=== PATIENT | male | born 1960 | race Two or more races ===

== ENCOUNTER 2016-12-30 13:51 | Inpatient (IN) | payer OTHER ==
[~2016-12-30] VITALS: Ht 162.6 cm; Wt 58.5 kg
[~2016-12-30 13:51] MED LIST: NS 1000ml 1,600 ML IVLG ONE
[2016-12-30] MEDS ORDERED: Lidocaine HCl 2% Jelly 5ml Tube TOPIC ONE (14:00)
--- NOTE | 2016-12-30 14:19 | Diagnostic Imaging Report ---
Indication: Chest Pain Comparison: None A single view chest radiograph was obtained. Findings: Cardiomediastinal appearance is within normal limits for age. Pulmonary vascularity is appropriate. The diaphragmatic contour is smooth and costophrenic angles are sharp. No pleural effusions are identified. The bones are unremarkable. Impression: No acute findings
--- NOTE | 2016-12-30 14:20 | Emergency Room Report ---
History of Present Illness General Chief Complaint: Generalized Weakness Source: Patient, EMS Present Illness HPI Patient presents with hypotension. The private physician checked on patient's in the [id number] where this patient gets checked weekly. He checked the patient blood pressure supine was normal but when he stood up his blood pressure dropped to 77. The patient denies dizziness, fever, chest pain, shortness of breath, nausea, vomiting, diarrhea. He does complain about dysuria and lower abdominal pain and has an indwelling [place] catheter. He states that he's had problems with his prostate in the past. Though he denies pain to RN, he relates pain is moderate (?5/10) suprapubic and in penis, not radiating and constant. H/O seizures and diabetes. Uncertain why in psychiatric SNF. Allergies: Coded Allergies: No Known Allergies (Unverified , 12/30/16) Patient History Past Medical History: see triage record Social History: Reports: smoking Social History Narrative Psychiatric [id number] Reviewed Nursing Documentation: PMH: Agreed, PSxH: Agreed Nursing Documentation-PM Past Medical History: No History, Except For Hx Diabetes: Yes Hx Neurological Problems: Yes - Seizure Review of Systems All Other Systems: negative except mentioned in HPI Physical Exam Vital Signs Date Time Temp Pulse Resp B/P Pulse Ox O2 Delivery O2 Flow Rate FiO2 12/30/16 13:41 98.2 102 16 135/84 99 Room Air Sp02 EP Interpretation: reviewed, normal General Appearance: no apparent distress, alert, GCS 15, thin, Chronically Ill Head: normocephalic Eyes: bilateral eye PERRL, bilateral eye normal inspection ENT: dry mucus membranes - poor dentition Neck: supple Respiratory: lungs clear, normal breath sounds Cardiovascular #1: regular rate, rhythm Cardiovascular #2: 2+ radial (R) Gastrointestinal: normal inspection, normal bowel sounds, non tender, no mass, non-distended Genitourinary: other - mesa with clear looking urine (but looks like has been in for while) Musculoskeletal: back normal, gait/station normal, normal range of motion Neurologic: alert, DTRs symmetric, sensory intact, motor weakness - LE, oriented - X2 Psychiatric: mood/affect normal Skin: normal inspection, warm/dry Medical Decision Making Diagnostic Impression: Primary Impression: Sepsis due to urinary tract infection Additional Impression: Diabetes Qualified Codes: E11.8 - Type 2 diabetes mellitus with unspecified complications ER Course Patient presents with hypotension and dysuria with indwelling Mesa. Differential includes sepsis, UTI, acute myocardial infarction, going depletion , electrolyte imbalance amongst others. Reevaluated with a septic workup including blood cultures and lactate. In addition to that EKG and chest x-ray will be performed. Mesa catheter we changed. He received 3 mg per kilogram bolus of saline. In addition to that a box will be started. Labs significant for pyuria, leukocytosis, elevated lactate. CXR and EKG normal. Repeat lactate more elevated. Increase hydration. Antibiotics started. Improved. Admitted telemetry, Dr. Gaona. Laboratory Tests Test 12/30/16 13:45 12/30/16 14:50 White Blood Count 9.2 K/UL (4.8-10.8) Red Blood Count 3.83 M/UL (4.70-6.10) L Hemoglobin 11.5 G/DL (14.2-18.0) L Hematocrit 33.2 % (42.0-52.0) L Mean Corpuscular Volume 87 FL (80-99) Mean Corpuscular Hemoglobin 30.0 PG (27.0-31.0) Mean Corpuscular Hemoglobin Concent 34.6 G/DL (32.0-36.0) Red Cell Distribution Width 12.9 % (11.6-14.8) Platelet Count 303 K/UL (150-450) Mean Platelet Volume 7.3 FL (6.5-10.1) Neutrophils (%) (Auto) 59.3 % (45.0-75.0) Lymphocytes (%) (Auto) 31.9 % (20.0-45.0) Monocytes (%) (Auto) 5.8 % (1.0-10.0) Eosinophils (%) (Auto) 2.3 % (0.0-3.0) Basophils (%) (Auto) 0.8 % (0.0-2.0) Prothrombin Time 10.3 SEC (9.30-11.50) Prothrombin Time INR 1.0 (0.9-1.1) PTT 25 SEC (23-33) Urine Color Yellow Urine Appearance Turbid Urine pH 6 (4.5-8.0) Urine Specific [place] 1.020 (1.005-1.035) Urine Protein 3+ (NEGATIVE) H Urine Glucose (UA) 3+ (NEGATIVE) H Urine Ketones Negative (NEGATIVE) Urine Occult Blood 2+ (NEGATIVE) H Urine Nitrite Positive (NEGATIVE) H Urine Bilirubin Negative (NEGATIVE) Urine Urobilinogen Normal MG/DL (0.0-1.0) Urine Leukocyte Esterase 3+ (NEGATIVE) H Urine RBC 5-10 /HPF (0 - 0) H Urine WBC 40-60 /HPF (0 - 0) H Urine Squamous Epithelial Cells Few /LPF (NONE/OCC) Urine Bacteria Many /HPF (NONE) H Sodium Level 141 mEQ/L (135-145) Potassium Level 4.2 mEQ/L (3.4-4.9) Chloride Level 101 mEQ/L (98-107) Carbon Dioxide Level 24 mEQ/L (20-30) Anion Gap 16 (5-15) H Blood Urea Nitrogen 12 mg/dL (7-23) Creatinine 0.7 mg/dL (0.7-1.2) Estimate Glomerular Filtration Rate > 60 mL/min (>60) Glucose Level 175 mg/dL (74-106) H Lactic Acid Level 2.50 mmol/L (0.66-2.22) H 2.90 mmol/L (0.66-2.22) H Calcium Level 9.0 mg/dL (8.6-10.2) Magnesium Level 1.7 mg/dL (1.7-2.5) Total Bilirubin < 0.2 mg/dL (0.0-1.2) Aspartate Amino Transferase (AST) 8 U/L (5-40) Alanine Aminotransferase (ALT) 13 U/L (3-41) Alkaline Phosphatase 54 U/L (40-129) Total Creatine Kinase 81 U/L (38-174) Troponin I < 0.30 ng/mL (<=0.30) Pro-B-Type Natriuretic Peptide 96 pg/mL (0-125) Total Protein 6.5 g/dL (6.6-8.7) L Albumin 3.7 g/dL (3.5-5.2) Globulin 2.8 g/dL Albumin/Globulin Ratio 1.3 (1.0-2.7) EKG Diagnostic Results Rate: normal Rhythm: NSR ST Segments: no acute changes Rhythm Strip Diag. Results EP Interpretation: yes Rhythm: NSR, no PVC's, no ectopy Chest X-Ray Diagnostic Results EP Interpretation: Yes Findings: no consolidation, no effusion, no pneumothorax, no acute cardiopulmonary disease Number of Views: 1 Last Vital Signs Date Time Temp Pulse Resp B/P Pulse Ox O2 Delivery O2 Flow Rate FiO2 12/31/16 00:38 98.6 88 20 148/89 98 Room Air Status: improved Disposition: ADMITTED INPATIENT Condition: Serious Jace Alcantar M.D. December 30, 2016 14:20
[2016-12-30] MEDS ORDERED: Cefepime HCl 1 GM in NS 55 ML IV STA (14:21)
[2016-12-30] MEDS ORDERED: Vancomycin 1 GM in NS 275 ML IV ONE (14:30)
[2016-12-30 14:32] LABS: ALANINE AMINOTRANSFERASE 13 U/L (3-41); ALBUMIN/GLOBULIN RATIO 1.3 (1.0-2.7); ANION GAP 16 (5-15); APPEARANCE,URINE TURBID; ASPARTATE AMINO TRANSFERASE 8 U/L (5-40); CARBON DIOXIDE 24 mEQ/L (20-30); CHLORIDE 101 mEQ/L (98-107); CREATININE 0.7 mg/dL (0.7-1.2); GLOMERULAR FILTRATION RATE > 60 mL/min (>60); HEMOLYSIS 5; KETONES,URINE NEGATIVE (NEGATIVE); LEUKOCYTE ESTERASE ,URINE 3+ (NEGATIVE); MAGNESIUM 1.7 mg/dL (1.7-2.5); NITRITE,URINE POSITIVE (NEGATIVE); PH,URINE 6 (4.5-8.0); POTASSIUM 4.2 mEQ/L (3.4-4.9); PROTEIN,URINE 3+ (NEGATIVE); SODIUM 141 mEQ/L (135-145); TOTAL PROTEIN 6.5 g/dL (6.6-8.7); TROPONIN I < 0.30 ng/mL (<=0.30); UROBILINOGEN,URINE NORMAL MG/DL (0.0-1.0)
[2016-12-30 14:33] LABS: PROTHROMBIN TIME 10.3 SEC (9.30-11.50)
[2016-12-30 14:35] LABS: REFLEX LACTIC ACID YES OR NO YES
[2016-12-30] MEDS ORDERED: Vancomycin 1gm inj IVPB ONE (14:41)
[2016-12-30] MEDS ORDERED: Cefepime 1gm vial ONE (14:41)
[2016-12-30 15:01] LABS: BASOPHILS % (AUTO) 0.8 % (0.0-2.0); EOSINOPHILS % (AUTO) 2.3 % (0.0-3.0); LYMPHOCYTES % (AUTO) 31.9 % (20.0-45.0); MEAN CORPUSCULAR HGB CONC 34.6 G/DL (32.0-36.0); MEAN CORPUSCULAR VOLUME 87 FL (80-99); MEAN PLATELET VOLUME 7.3 FL (6.5-10.1); MONOCYTES % (AUTO) 5.8 % (1.0-10.0); NEUTROPHILS % (AUTO) 59.3 % (45.0-75.0); PLATELET COUNT 303 K/UL (150-450); RED BLOOD COUNT 3.83 M/UL (4.70-6.10); RED CELL DISTRIBUTION WIDTH 12.9 % (11.6-14.8); WHITE BLOOD COUNT 9.2 K/UL (4.8-10.8)
[2016-12-30 15:15] LABS: BACTERIA,URINE MANY /HPF; SQUAMOUS EPITHELIAL CELL,UR FEW /LPF (NONE/OCC); WBC,URINE 40-60 /HPF (0 - 0)
[2016-12-30] MEDS ORDERED: MEGESTROL ACETA40 MG PO (15:28)
[2016-12-30] MEDS ORDERED: MIDODRINE HCL5 MG ORAL (15:36)
[2016-12-30] MEDS ORDERED: METFORMIN HCL1000 M1 ORAL (15:36)
[2016-12-30] MEDS ORDERED: FOLIC ACID1 MG ORAL (15:36)
[2016-12-30] MEDS ORDERED: TAMSULOSIN HCL0.4 MG ORAL (15:36)
[2016-12-30] MEDS ORDERED: LEVETIRACETAM500 MG ORAL (15:36)
[2016-12-30] MEDS ORDERED: GLIMEPIRIDE1 MG ORAL (15:36)
[2016-12-30] MEDS ORDERED: ACETAMINOP160 MG/54 ORAL (15:36)
[2016-12-30] MEDS ORDERED: PROSCAR5 MG ORAL (15:36)
[2016-12-30 16:03] VITALS: BP 118/42
[2016-12-30 17:29] VITALS: BP 110/50
[2016-12-30] MEDS ORDERED: Morphine Sulfate 2mg/ml Inj IVP PRN (18:00)
[2016-12-30] MEDS ORDERED: DuoNeb 0.5-3(2.5)mg/3ml neb HHN PRN (18:00)
[2016-12-30] MEDS ORDERED: Miralax 17gm pkt ORAL PRN (18:00)
[2016-12-30] MEDS ORDERED: Nitroglycerin Subl 0.4mg tab (Bottle Of 25) SL PRN (18:15)
[2016-12-30 18:28] VITALS: BP 136/78
[2016-12-30 20:11] VITALS: BP 152/85
[2016-12-30] MEDS: Heparin 5000 units/ml inj SUBQ SCH (20:42)
[2016-12-30] MEDS: NovoLOG Insulin Flexpen SUBQ SCH (20:43)
[2016-12-30] MEDS: Cefepime HCl 2 GM in D5W 110 ML IV SCH (20:44)
[2016-12-30] MEDS ORDERED: Tamsulosin 0.4mg cap ORAL SCH (21:00)
[2016-12-30] MEDS: Vancomycin 1 GM in D5W 275 ML IVPB SCH (23:11)
--- NOTE | 2016-12-30 23:41 | Consultation ---
Consult Note Consult Note # [id number] RUDDY COFFEY M.D. December 30, 2016 23:41
[2016-12-31 00:38] VITALS: BP 148/89
[2016-12-31 04:25] VITALS: BP 116/69
[2016-12-31] MEDS: NovoLOG Insulin Flexpen SUBQ SCH ×4 (06:52→20:44)
[2016-12-31 07:41] VITALS: BP 104/67
[2016-12-31 08:12] LABS: EOSINOPHILS % (AUTO) 2.1 % (0.0-3.0); LYMPHOCYTES % (AUTO) 43.9 % (20.0-45.0); MEAN CORPUSCULAR HEMOGLOBIN 29.5 PG (27.0-31.0); MEAN CORPUSCULAR HGB CONC 33.9 G/DL (32.0-36.0); MEAN CORPUSCULAR VOLUME 87 FL (80-99); MEAN PLATELET VOLUME 6.6 FL (6.5-10.1); MONOCYTES % (AUTO) 5.3 % (1.0-10.0); NEUTROPHILS % (AUTO) 47.8 % (45.0-75.0); PLATELET COUNT 279 K/UL (150-450); RED BLOOD COUNT 3.68 M/UL (4.70-6.10); RED CELL DISTRIBUTION WIDTH 12.7 % (11.6-14.8); WHITE BLOOD COUNT 7.2 K/UL (4.8-10.8)
--- NOTE | 2016-12-31 08:16 | Consultation ---
DATE OF CONSULTATION: INFECTIOUS DISEASE CONSULTATION CONSULTING PHYSICIAN: Olman Blackburn M.D. REQUESTING PHYSICIAN: Heaven Gaona M.D. REASON FOR CONSULTATION: Evaluation of the patient for possible sepsis. HISTORY OF PRESENT ILLNESS: The patient is a 56-year-old male with multiple medical problems as listed below, who was admitted to this medical center due to uncontrolled hypertension. However, apparently, the patient developed significant orthostatic hypotension and the blood pressures dropped. The patient has been admitted to this medical center with possible sepsis. Infectious Disease consultation has been requested for further evaluation of the patient and antibiotic management. PAST MEDICAL HISTORY: Significant for diabetes and psychiatric disorder. MEDICATIONS: Vancomycin and cefepime. ALLERGIES: No known drug allergies. SOCIAL HISTORY: Resides at [facility]. REVIEW OF SYSTEMS: HEENT: No recent change in vision or hearing. Pulmonary: No cough or shortness of breath. Cardiovascular: As mentioned above. Gastrointestinal/Abdomen: No nausea or vomiting. Genitourinary: No dysuria. PHYSICAL EXAMINATION: VITAL SIGNS: Temperature 97.5 degrees, blood pressure 152/85, pulse 86, and respiratory rate 18. HEENT: Mild pale conjunctivae. No icterus. NECK: No lymphadenopathy. CHEST: Coarse breathing sounds. HEART: S1 and S2. ABDOMEN: Soft and nontender. EXTREMITIES: No cyanosis. NEUROLOGIC: Awake. LABORATORY DATA: WBC 9.2, hemoglobin 11.5, and platelets 303,000. UA, 40 to 60 white blood cells. BUN 12 and creatinine 0.6. Liver function tests, unremarkable. Chest x-ray, no acute findings. ASSESSMENT: The patient is a 56-year-old male with multiple medical problems, who has been admitted to this medical center initially with hypertension, but then later the patient developed hypotension. The patient's urinalysis showed pyuria. There is no fever and no leukocytosis. Possible urinary tract infection, sepsis, and bacteremia due to , however in view of absence of significant symptoms, this is less likely. PLAN: 1. We will continue the patient on IV vancomycin and cefepime. 2. Monitor CBC. 3. Monitor BMP. 4. Monitor cultures (blood and urine). 5. Monitor chest x-ray. 6. Based on the patient's clinical course and laboratories, we will do further recommendations. Thank you, Dr. Gaona, for allowing me to participate in the care of this patient. I will follow the patient with you during this hospitalization. Olman Blackburn M.D. DR: ROSARIO JOB#: [id number] CC:
[2016-12-31 08:18] LABS: ALANINE AMINOTRANSFERASE 11 U/L (3-41); ALBUMIN/GLOBULIN RATIO 1.3 (1.0-2.7); ANION GAP 14 (5-15); ASPARTATE AMINO TRANSFERASE 7 U/L (5-40); CALCIUM 8.6 mg/dL (8.6-10.2); CARBON DIOXIDE 24 mEQ/L (20-30); CHLORIDE 103 mEQ/L (98-107); CREATININE 0.5 mg/dL (0.7-1.2); GLOMERULAR FILTRATION RATE > 60 mL/min (>60); HEMOLYSIS 1; POTASSIUM 3.6 mEQ/L (3.4-4.9); SODIUM 141 mEQ/L (135-145); TOTAL PROTEIN 5.7 g/dL (6.6-8.7)
[2016-12-31] MEDS: Cefepime HCl 2 GM in D5W 110 ML IV SCH (08:42)
[2016-12-31] MEDS: Heparin 5000 units/ml inj SUBQ SCH ×2 (08:44→20:54)
[2016-12-31 11:17] VITALS: BP 116/65
[2016-12-31] MEDS: Vancomycin 1 GM in D5W 275 ML IVPB SCH (11:36)
--- NOTE | 2016-12-31 13:34 | History and Physical ---
History of Present Illness General Date patient seen: December 31, 2016 Reason for Hospitalization: Generalized Weakness Present Illness HPI 56 year old male with hx of psychiatric disorder, chronic mesa, brought in by paramedics because his blood pressure dropped to 77 upon standing The patient denies dizziness, fever, chest pain, shortness of breath, nausea, vomiting, diarrhea. He does complain about dysuria and lower abdominal pain and has an indwelling [place] catheter. He states that he's had problems with his prostate in the past. He is admitted to telemetry for possible sepsis. Allergies: Coded Allergies: No Known Allergies (Unverified , 12/31/16) Medication History Scheduled Finasteride* (Proscar*), 5 MG ORAL DAILY, (Reported) Folic Acid* (Folic Acid*), 1 MG ORAL DAILY, (Reported) Glimepiride* (Glimepiride*), 1 MG ORAL BEFORE BREAKFAST, (Reported) Levetiracetam* (Levetiracetam*), 750 MG ORAL TWICE A DAY, (Reported) Metformin Hcl* (Metformin Hcl*), 1,000 MG ORAL BIDAC, (Reported) Midodrine* (Proamatine*), 5 MG ORAL THREE TIMES A DAY, (Reported) Tamsulosin Hcl (Tamsulosin Hcl*), 0.4 MG ORAL BEDTIME, (Reported) Scheduled PRN Acetaminophen* (Acetaminophen*), 325 MG ORAL Q6H PRN for Mild Pain/Temp > 100.5, (Reported) Miscellaneous Medications Megestrol Acetate (Megestrol Acetate), 40 MG PO, (Reported) Patient History Healthcare decision maker NONE Resuscitation status Full Code Advanced Directive on File Past Medical/Surgical History Past Medical/Surgical History: (1) Psychiatric illness (2) Diabetes Review of Systems All Other Systems: negative except mentioned in HPI Physical Exam General Appearance: WD/WN, no apparent distress Lines, tubes and drains: peripheral HEENT: normocephalic, atraumatic Neck: non-tender, normal alignment Respiratory/Chest: chest wall non-tender, lungs clear Breasts: no masses Cardiovascular/Chest: normal peripheral pulses, normal rate Abdomen: normal bowel sounds, non tender Genitourinary/Rectal: normal genital exam Extremities: normal range of motion Neurologic: supervisor nurse II-XII grossly normal Last 24 Hour Vital Signs Date Time Temp Pulse Resp B/P Pulse Ox O2 Delivery O2 Flow Rate FiO2 12/31/16 11:17 97.9 88 20 116/65 98 Room Air 12/31/16 08:02 77 18 Room Air 12/31/16 08:00 112 12/31/16 07:41 98.1 84 20 104/67 98 Room Air 12/31/16 04:25 97.5 84 20 116/69 98 Room Air 12/31/16 04:00 81 12/31/16 00:38 98.6 88 20 148/89 98 Room Air 12/31/16 00:00 103 12/30/16 20:11 97.5 89 20 152/85 97 Room Air 12/30/16 20:00 91 12/30/16 18:28 98.1 94 20 136/78 Room Air 12/30/16 18:03 78 16 120/80 98 Room Air 12/30/16 17:29 98.6 98 16 110/50 99 Room Air 12/30/16 16:03 103 16 118/42 98 Room Air 12/30/16 13:41 98.2 102 16 135/84 99 Room Air Intake and Output 12/30/16 12/31/16 19:00 07:00 Intake Total 385.0 ml Output Total 3100 ml Balance -2715.0 ml IV Total 385.0 ml Output Urine Total 3100 ml # Voids 1 Laboratory Tests Test 12/30/16 13:45 12/30/16 14:50 12/31/16 07:00 White Blood Count 9.2 K/UL (4.8-10.8) 7.2 K/UL (4.8-10.8) Red Blood Count 3.83 M/UL (4.70-6.10) L 3.68 M/UL (4.70-6.10) L Hemoglobin 11.5 G/DL (14.2-18.0) L 10.9 G/DL (14.2-18.0) L Hematocrit 33.2 % (42.0-52.0) L 32.1 % (42.0-52.0) L Mean Corpuscular Volume 87 FL (80-99) 87 FL (80-99) Mean Corpuscular Hemoglobin 30.0 PG (27.0-31.0) 29.5 PG (27.0-31.0) Mean Corpuscular Hemoglobin Concent 34.6 G/DL (32.0-36.0) 33.9 G/DL (32.0-36.0) Red Cell Distribution Width 12.9 % (11.6-14.8) 12.7 % (11.6-14.8) Platelet Count 303 K/UL (150-450) 279 K/UL (150-450) Mean Platelet Volume 7.3 FL (6.5-10.1) 6.6 FL (6.5-10.1) Neutrophils (%) (Auto) 59.3 % (45.0-75.0) 47.8 % (45.0-75.0) Lymphocytes (%) (Auto) 31.9 % (20.0-45.0) 43.9 % (20.0-45.0) Monocytes (%) (Auto) 5.8 % (1.0-10.0) 5.3 % (1.0-10.0) Eosinophils (%) (Auto) 2.3 % (0.0-3.0) 2.1 % (0.0-3.0) Basophils (%) (Auto) 0.8 % (0.0-2.0) 1.0 % (0.0-2.0) Prothrombin Time 10.3 SEC (9.30-11.50) Prothromb Time International Ratio 1.0 (0.9-1.1) Activated Partial Thromboplast Time 25 SEC (23-33) Urine Color Yellow Urine Appearance Turbid Urine pH 6 (4.5-8.0) Urine Specific [place] 1.020 (1.005-1.035) Urine Protein 3+ (NEGATIVE) H Urine Glucose (UA) 3+ (NEGATIVE) H Urine Ketones Negative (NEGATIVE) Urine Occult Blood 2+ (NEGATIVE) H Urine Nitrite Positive (NEGATIVE) H Urine Bilirubin Negative (NEGATIVE) Urine Urobilinogen Normal MG/DL (0.0-1.0) Urine Leukocyte Esterase 3+ (NEGATIVE) H Urine RBC 5-10 /HPF (0 - 0) H Urine WBC 40-60 /HPF (0 - 0) H Urine Squamous Epithelial Cells Few /LPF (NONE/OCC) Urine Bacteria Many /HPF (NONE) H Sodium Level 141 mEQ/L (135-145) 141 mEQ/L (135-145) Potassium Level 4.2 mEQ/L (3.4-4.9) 3.6 mEQ/L (3.4-4.9) Chloride Level 101 mEQ/L (98-107) 103 mEQ/L (98-107) Carbon Dioxide Level 24 mEQ/L (20-30) 24 mEQ/L (20-30) Anion Gap 16 (5-15) H 14 (5-15) Blood Urea Nitrogen 12 mg/dL (7-23) 9 mg/dL (7-23) Creatinine 0.7 mg/dL (0.7-1.2) 0.5 mg/dL (0.7-1.2) L Estimat Glomerular Filtration Rate > 60 mL/min (>60) > 60 mL/min (>60) Glucose Level 175 mg/dL (74-106) H 136 mg/dL (74-106) H Lactic Acid Level 2.50 mmol/L (0.66-2.22) H 2.90 mmol/L (0.66-2.22) H Calcium Level 9.0 mg/dL (8.6-10.2) 8.6 mg/dL (8.6-10.2) Magnesium Level 1.7 mg/dL (1.7-2.5) Total Bilirubin < 0.2 mg/dL (0.0-1.2) < 0.2 mg/dL (0.0-1.2) Aspartate Amino Transf (AST/SGOT) 8 U/L (5-40) 7 U/L (5-40) Alanine Aminotransferase (ALT/SGPT) 13 U/L (3-41) 11 U/L (3-41) Alkaline Phosphatase 54 U/L (40-129) 47 U/L (40-129) Total Creatine Kinase 81 U/L (38-174) Troponin I < 0.30 ng/mL (<=0.30) Pro-B-Type Natriuretic Peptide 96 pg/mL (0-125) Total Protein 6.5 g/dL (6.6-8.7) L 5.7 g/dL (6.6-8.7) L Albumin 3.7 g/dL (3.5-5.2) 3.3 g/dL (3.5-5.2) L Globulin 2.8 g/dL 2.4 g/dL Albumin/Globulin Ratio 1.3 (1.0-2.7) 1.3 (1.0-2.7) Microbiology Date/Time Source Procedure Growth Status 12/30/16 13:45 Urine,Clean Catch Urine Culture - Preliminary Gram Negative Bacillus 1 Resulted Height (Feet): 5 Height (Inches): 4.00 Weight (Pounds): 129 Medications Current Medications Medications (Trade) Dose Ordered Sig/Royal Route PRN Reason Start Time Stop Time Status Last Admin Dose Admin Acetaminophen (Tylenol) 650 mg Q4H PRN ORAL T>100.5 12/30/16 18:00 01/29/17 17:59 Albuterol/ Ipratropium 3 ml 3 ml Q4H PRN HHN Shortness of Breath 12/30/16 18:00 01/04/17 17:59 Cefepime HCl 2 gm/ Dextrose 110 ml @ 220 mls/hr EVERY 12 HOURS IV 12/30/16 21:00 01/06/17 20:59 12/31/16 08:42 Dextrose (Dextrose 50%) STAT PRN IV Hypoglycemia 12/30/16 18:00 01/29/17 17:59 Finasteride (Proscar) 5 mg DAILY ORAL 12/31/16 09:00 01/30/17 08:59 12/31/16 08:42 Heparin Sodium (Porcine) (Heparin 5000 units/ml) 5,000 units EVERY 12 HOURS SUBQ 12/30/16 21:00 01/29/17 20:59 12/31/16 08:44 Insulin Aspart (NovoLOG) BEFORE MEALS AND HS SUBQ 12/30/16 21:00 01/29/17 20:59 12/31/16 11:37 Levetiracetam (Keppra) 750 mg Q12HR ORAL 12/30/16 21:00 01/29/17 20:59 12/31/16 08:42 Midodrine (Pro-Amatine) 5 mg THREE TIMES A DAY ORAL 12/30/16 20:00 01/29/17 19:59 12/31/16 13:16 Morphine Sulfate (Morphine Sulfate) 2 mg Q4H PRN IVP PAIN 4-10 12/30/16 18:00 01/06/17 17:59 12/31/16 02:29 Nitroglycerin (Ntg) 0.4 mg Q5MIN X 3 DOSES PRN SL Prn Chest Pain 12/30/16 18:15 01/29/17 18:14 Ondansetron HCl (Zofran) 4 mg Q6H PRN IVP Nausea & Vomiting 12/30/16 18:00 01/29/17 17:59 Polyethylene Glycol (Miralax) 17 gm DAILYPRN PRN ORAL Constipation 12/30/16 18:00 01/29/17 17:59 Tamsulosin HCl (Flomax) 0.4 mg BEDTIME ORAL 12/30/16 21:00 01/29/17 20:59 12/30/16 20:30 Temazepam (Restoril) 15 mg HSPRN PRN ORAL Insomnia 12/30/16 21:00 01/06/17 20:59 Vancomycin HCl (Vanco rx to dose) 1 ea DAILY PRN MISC . 12/30/16 18:15 01/29/17 18:14 Vancomycin HCl/ Dextrose (Vancomycin/D5W) 275 ml @ 183.3 mls/ hr Q12HR@1100,2300 IVPB 12/30/16 23:00 01/04/17 22:59 12/31/16 11:36 Assessment/Plan Problem List: (1) Sepsis due to urinary tract infection ICD Codes: A41.9 - Sepsis, unspecified organism; N39.0 - Urinary tract infection, site not specified SNOMED: 657038889 (2) Psychiatric illness ICD Codes: F99 - Mental disorder, not otherwise specified SNOMED: 80843488, [id number] (3) Diabetes ICD Codes: E11.9 - Type 2 diabetes mellitus without complications SNOMED: 07452806 Qualifiers: Qualified Codes: E11.8 - Type 2 diabetes mellitus with unspecified complications Assessment/Plan IV fluids check cultures ID evaluation psych evaluation STEPHENIE ROONEY December 31, 2016 13:34
[2016-12-31] MEDS ORDERED: DuoNeb 0.5-3(2.5)mg/3ml neb HHN PRN (16:00)
[2016-12-31] MEDS ORDERED: Nitroglycerin Subl 0.4mg tab (Bottle Of 25) SL PRN (16:00)
[2016-12-31] MEDS ORDERED: Miralax 17gm pkt ORAL PRN (16:00)
[2016-12-31] MEDS ORDERED: Morphine Sulfate 2mg/ml Inj IVP PRN (16:00)
[2016-12-31 16:06] VITALS: BP 134/76
[2016-12-31 20:00] VITALS: BP 132/64
[2016-12-31] MEDS: Tamsulosin 0.4mg cap ORAL SCH (20:52)
[2016-12-31] MEDS ORDERED: Cefepime HCl 2 GM in D5W 110 ML IV SCH (21:00)
--- NOTE | 2016-12-31 23:31 | Consultation ---
DATE OF CONSULTATION: HISTORY OF PRESENT ILLNESS: This is a 56-year-old male with a history of hypotension and schizophrenia, who has been admitted due to generalized weakness. The patient also has a history of seizure disorder and diabetes. He was admitted due to sepsis. During the evaluation, the patient is alert and oriented times self and place, however, unable to provide history, somewhat disorganized, and not engaged during the evaluation. He is still complaining of weakness. PAST PSYCHIATRIC HISTORY: Diagnosed with schizophrenia, who has been treated with antipsychotics in the past. He also has been treated with anxiolytics. PAST MEDICAL HISTORY: Significant for diabetes and seizure disorder. ALLERGIES: No known drug allergies. SUBSTANCE ABUSE HISTORY: He is a smoker. No illicit drug use or alcohol. MENTAL STATUS EXAMINATION: The patient is alert and oriented x2. Mood is neutral. Affect is constricted. Congruent mood. Thought process is concrete. Thought content, there is no suicidal or homicidal ideation. Cognition is impaired. ASSESSMENT: [place] I Schizophrenia. [place] II Deferred. [place] III Sepsis. [place] IV Slow. [place] V Global assessment of functioning is 20. PLAN: 1. The patient will be started on risperidone 2 mg p.o. at bedtime. 2. Provide the patient with supportive therapy and reality orientation. Wyatt Loja M.D. DR: MICHELLE JOB#: [id number] CC:
[2017-01-01] VITALS: BP 112/68
[2017-01-01 04:00] VITALS: BP 114/59
[2017-01-01] MEDS: NovoLOG Insulin Flexpen SUBQ SCH ×4 (06:30→20:57)
[2017-01-01 07:14] LABS: MEAN CORPUSCULAR HEMOGLOBIN 29.2 PG (27.0-31.0); MEAN CORPUSCULAR VOLUME 88 FL (80-99); MEAN PLATELET VOLUME 6.9 FL (6.5-10.1); PLATELET COUNT 301 K/UL (150-450); RED BLOOD COUNT 3.78 M/UL (4.70-6.10); RED CELL DISTRIBUTION WIDTH 13.2 % (11.6-14.8); WHITE BLOOD COUNT 6.5 K/UL (4.8-10.8)
[2017-01-01 07:34] LABS: PROTHROMBIN TIME 10.2 SEC (9.30-11.50)
[2017-01-01 08:15] VITALS: BP 120/68
--- NOTE | 2017-01-01 08:33 | Infectious Diseases Prog Note ---
Assessment/Plan Assessment/Plan A: The patient is a 56-year-old male with ESBL+ E.coli UTI Sepsis probable Lactic acidosis SP SP orthostatic hypotension Afebrile without leukocytosis HTN Diabetes hx of psychiatric disorder MRSA colonized NKDA Full Code PLAN: change cefepime d# 3 to invanz d# / based on cultures. Ok to complete course with PO macrobid if BCx remain negative ( 12/31 SP vancomycin d# 2 ) Monitor CBC Monitor BMP Monitor cultures (blood and urine) Monitor chest x-ray Subjective Allergies: Coded Allergies: No Known Allergies (Unverified , 12/31/16) Subjective remains afebrile comfortable Objective Vital Signs Last 24 Hour Vital Signs Date Time Temp Pulse Resp B/P Pulse Ox O2 Delivery O2 Flow Rate FiO2 01/01/17 04:00 98.2 76 20 114/59 98 Room Air 01/01/17 00:00 97.2 91 22 112/68 96 Room Air 12/31/16 20:00 97.9 72 18 132/64 97 Room Air 12/31/16 19:35 72 18 Room Air 12/31/16 18:25 97.7 12/31/16 16:06 97.7 79 20 134/76 99 Room Air 12/31/16 12:00 92 12/31/16 11:17 97.9 88 20 116/65 98 Room Air Height (Feet): 5 Height (Inches): 4.00 Weight (Pounds): 129 General Appearance: no acute distress Respiratory/Chest: no respiratory distress Cardiovascular: normal rate, regular rhythm Abdomen: normal bowel sounds, soft, non tender, non distended Microbiology Date/Time Source Procedure Growth Status 12/30/16 14:00 Blood Blood Culture - Preliminary NO GROWTH AFTER 24 HOURS Resulted 12/30/16 13:45 Blood Blood Culture - Preliminary NO GROWTH AFTER 24 HOURS Resulted 12/30/16 17:50 Nasal Nares MRSA Culture - Final Staphylococcus Aureus - Mrsa Complete 12/30/16 13:45 Urine,Clean Catch Urine Culture - Final Escherichia Coli - Esbl Complete 12/30/16 17:50 Rectum VRE Culture - Final NO VANCOMYCIN RESISTANT ENTEROCOCCUS ... Complete Laboratory Tests Test 01/01/17 04:30 White Blood Count 6.5 K/UL (4.8-10.8) Red Blood Count 3.78 M/UL (4.70-6.10) L Hemoglobin 11.0 G/DL (14.2-18.0) L Hematocrit 33.4 % (42.0-52.0) L Mean Corpuscular Volume 88 FL (80-99) Mean Corpuscular Hemoglobin 29.2 PG (27.0-31.0) Mean Corpuscular Hemoglobin Concent 33.0 G/DL (32.0-36.0) Red Cell Distribution Width 13.2 % (11.6-14.8) Platelet Count 301 K/UL (150-450) Mean Platelet Volume 6.9 FL (6.5-10.1) Neutrophils (%) (Auto) 49.1 % (45.0-75.0) Lymphocytes (%) (Auto) 42.6 % (20.0-45.0) Monocytes (%) (Auto) 5.4 % (1.0-10.0) Eosinophils (%) (Auto) 1.8 % (0.0-3.0) Basophils (%) (Auto) 1.1 % (0.0-2.0) Erythrocyte Sedimentation Rate Pending Reticulocyte Count Pending Prothrombin Time 10.2 SEC (9.30-11.50) Prothromb Time International Ratio 1.0 (0.9-1.1) Activated Partial Thromboplast Time 25 SEC (23-33) Lactic Acid Level 0.90 mmol/L (0.66-2.22) Iron Level Pending Unsaturated Iron Binding Pending Lactate Dehydrogenase 160 U/L (135-230) Carcinoembryonic Antigen 2.0 ng/mL Vitamin B12 Level 448 pg/mL (211-946) Folate Pending Current Medications Medications (Trade) Dose Ordered Sig/Royal Route PRN Reason Start Time Stop Time Status Last Admin Dose Admin Acetaminophen (Tylenol) 650 mg Q4H PRN ORAL T>100.5 12/31/16 16:00 01/30/17 15:59 12/31/16 17:26 Albuterol/ Ipratropium (DuoNeb 0.5-3(2.5)mg/3ml) 3 ml Q4H PRN HHN Shortness of Breath 12/31/16 16:00 01/05/17 15:59 Cefepime HCl/ Dextrose (Maxipime/D5W) 110 ml @ 220 mls/hr EVERY 12 HOURS IV 12/31/16 21:00 01/07/17 20:59 12/31/16 20:34 Dextrose (Dextrose 50%) STAT PRN IV Hypoglycemia 12/31/16 16:00 01/30/17 15:59 Finasteride (Proscar) 5 mg DAILY ORAL 01/01/17 09:00 01/31/17 08:59 Heparin Sodium (Porcine) (Heparin 5000 units/ml) 5,000 units EVERY 12 HOURS SUBQ 12/31/16 21:00 01/30/17 20:59 12/31/16 20:54 Insulin Aspart (NovoLOG) BEFORE MEALS AND HS SUBQ 12/31/16 16:30 01/30/17 16:29 12/31/16 17:07 Levetiracetam (Keppra) 750 mg Q12HR ORAL 12/31/16 21:00 01/30/17 20:59 12/31/16 20:53 Midodrine (Pro-Amatine) 5 mg THREE TIMES A DAY ORAL 12/31/16 18:00 01/30/17 17:59 12/31/16 17:20 Morphine Sulfate (Morphine Sulfate) 2 mg Q4H PRN IVP PAIN 4-10 12/31/16 16:00 01/07/17 15:59 Nitroglycerin (Ntg) 0.4 mg Q5MIN X 3 DOSES PRN SL Prn Chest Pain 12/31/16 16:00 01/30/17 15:59 Ondansetron HCl (Zofran) 4 mg Q6H PRN IVP Nausea & Vomiting 12/31/16 16:00 01/30/17 15:59 Polyethylene Glycol (Miralax) 17 gm DAILYPRN PRN ORAL Constipation 12/31/16 16:00 01/30/17 15:59 Risperidone (RisperDAL) 2 mg BEDTIME ORAL 12/31/16 21:00 01/30/17 20:59 12/31/16 20:52 Tamsulosin HCl (Flomax) 0.4 mg BEDTIME ORAL 12/31/16 21:00 01/30/17 20:59 12/31/16 20:52 Temazepam (Restoril) 15 mg HSPRN PRN ORAL Insomnia 12/31/16 21:00 01/07/17 20:59 LETICIA RAMOS January 01, 2017 08:33
[2017-01-01] MEDS: Heparin 5000 units/ml inj SUBQ SCH ×2 (09:19→20:56)
--- NOTE | 2017-01-01 09:30 | Pulmonology Progress Note ---
Assessment/Plan Assessment/Plan ASSESSMENT sepsis E coli ESBL UTI DM hypotension hx of HTN hx of psychiatric disorder seizure disorder anemia PLAN OF CARE [facility] floor CXR negative urine cx + E coli ESBL abx regimen optimized as per ID ID, follows s/p IVF, check orthostatic VS this am continue Midodrine BP stable resume psych meds DVT prophylaxis bowel regimen seizure precautions,continue Keppra BS management with SS of insulin monitor HH stable, at baseline, no trend down case discussed and evaluated by supervising physician Subjective Allergies: Coded Allergies: No Known Allergies (Unverified , 12/31/16) Subjective denies chest pain, SOB no seizure activity urine cx back with E coli ESBL Objective Last 24 Hour Vital Signs Date Time Temp Pulse Resp B/P Pulse Ox O2 Delivery O2 Flow Rate FiO2 01/01/17 08:15 98.3 99 21 120/68 98 Room Air 01/01/17 04:00 98.2 76 20 114/59 98 Room Air 01/01/17 00:00 97.2 91 22 112/68 96 Room Air 12/31/16 20:00 97.9 72 18 132/64 97 Room Air 12/31/16 19:35 72 18 Room Air 12/31/16 18:25 97.7 12/31/16 16:06 97.7 79 20 134/76 99 Room Air 12/31/16 12:00 92 12/31/16 11:17 97.9 88 20 116/65 98 Room Air Intake and Output 12/31/16 01/01/17 19:00 07:00 Intake Total 895.0 ml 590 ml Output Total 1200 ml Balance -305.0 ml 590 ml Intake Oral 400 ml 480 ml IV Total 495.0 ml 110 ml Output Urine Total 1200 ml General Appearance: no acute distress, other - awake, responsive, weak, Serbian speaking male HEENT: normocephalic, atraumatic Respiratory/Chest: lungs clear, no respiratory distress, no accessory muscle use Cardiovascular: normal rate, regular rhythm Abdomen: normal bowel sounds, soft, non tender Genitourinary: normal external genitalia Extremities: no edema, pedal pulses normal Neurologic/Psychiatric: abnormal gait, alert, responsive Musculoskeletal: atrophy - BLE Microbiology Date/Time Source Procedure Growth Status 12/30/16 14:00 Blood Blood Culture - Preliminary NO GROWTH AFTER 24 HOURS Resulted 12/30/16 13:45 Blood Blood Culture - Preliminary NO GROWTH AFTER 24 HOURS Resulted 12/30/16 17:50 Nasal Nares MRSA Culture - Final Staphylococcus Aureus - Mrsa Complete 12/30/16 13:45 Urine,Clean Catch Urine Culture - Final Escherichia Coli - Esbl Complete 12/30/16 17:50 Rectum VRE Culture - Final NO VANCOMYCIN RESISTANT ENTEROCOCCUS ... Complete Laboratory Tests 01/01/17 04:30: White Blood Count 6.5, Red Blood Count 3.78L, Hemoglobin 11.0L, Hematocrit 33.4L , Mean Corpuscular Volume 88, Mean Corpuscular Hemoglobin 29.2, Mean Corpuscular Hemoglobin Concent 33.0, Red Cell Distribution Width 13.2, Platelet Count 301, Mean Platelet Volume 6.9, Neutrophils (%) (Auto) 49.1, Lymphocytes (% ) (Auto) 42.6, Monocytes (%) (Auto) 5.4, Eosinophils (%) (Auto) 1.8, Basophils ( %) (Auto) 1.1, Erythrocyte Sedimentation Rate [Pending], Reticulocyte Count [ Pending], Prothrombin Time 10.2, Prothromb Time International Ratio 1.0, Activated Partial Thromboplast Time 25, Lactic Acid Level 0.90, Iron Level 65, Total Iron Binding Capacity 246L, Percent Iron Saturation 26, Unsaturated Iron Binding 181, Lactate Dehydrogenase 160, Carcinoembryonic Antigen 2.0, Vitamin B12 Level 448, Folate [Pending] Current Medications Medications (Trade) Dose Ordered Sig/Royal Route PRN Reason Start Time Stop Time Status Last Admin Dose Admin Acetaminophen (Tylenol) 650 mg Q4H PRN ORAL T>100.5 12/31/16 16:00 01/30/17 15:59 12/31/16 17:26 Albuterol/ Ipratropium (DuoNeb 0.5-3(2.5)mg/3ml) 3 ml Q4H PRN HHN Shortness of Breath 12/31/16 16:00 01/05/17 15:59 Dextrose (Dextrose 50%) STAT PRN IV Hypoglycemia 12/31/16 16:00 01/30/17 15:59 Ertapenem/Sodium Chloride (INVanz/Sodium Chloride) 55 ml @ 110 mls/hr Q24H IVPB 01/01/17 10:00 01/06/17 09:59 Finasteride (Proscar) 5 mg DAILY ORAL 01/01/17 09:00 01/31/17 08:59 01/01/17 09:17 Heparin Sodium (Porcine) (Heparin 5000 units/ml) 5,000 units EVERY 12 HOURS SUBQ 12/31/16 21:00 01/30/17 20:59 01/01/17 09:19 Insulin Aspart (NovoLOG) BEFORE MEALS AND HS SUBQ 12/31/16 16:30 01/30/17 16:29 12/31/16 17:07 Levetiracetam (Keppra) 750 mg Q12HR ORAL 12/31/16 21:00 01/30/17 20:59 01/01/17 09:16 Midodrine (Pro-Amatine) 5 mg THREE TIMES A DAY ORAL 12/31/16 18:00 01/30/17 17:59 01/01/17 09:17 Morphine Sulfate (Morphine Sulfate) 2 mg Q4H PRN IVP PAIN 4-10 12/31/16 16:00 01/07/17 15:59 Nitroglycerin (Ntg) 0.4 mg Q5MIN X 3 DOSES PRN SL Prn Chest Pain 12/31/16 16:00 01/30/17 15:59 Ondansetron HCl (Zofran) 4 mg Q6H PRN IVP Nausea & Vomiting 12/31/16 16:00 01/30/17 15:59 Polyethylene Glycol (Miralax) 17 gm DAILYPRN PRN ORAL Constipation 12/31/16 16:00 01/30/17 15:59 Risperidone 2 mg 2 mg BEDTIME ORAL 12/31/16 21:00 01/30/17 20:59 12/31/16 20:52 Tamsulosin HCl (Flomax) 0.4 mg BEDTIME ORAL 12/31/16 21:00 01/30/17 20:59 12/31/16 20:52 Temazepam (Restoril) 15 mg HSPRN PRN ORAL Insomnia 12/31/16 21:00 01/07/17 20:59 Kaylynn Cantu NP (Vanchtein) January 01, 2017 09:30
[2017-01-01 09:43] LABS: ERYTHROCYTE SEDIMENTATION RATE 61 MM/HR (0-20)
[2017-01-01] MEDS: Ertapenem 1 GM in NS 55 ML IVPB SCH (10:15)
[2017-01-01 11:44] LABS: RETICULOCYTE COUNT 1.6 % (0.0-2.0)
[2017-01-01 12:15] VITALS: BP 98/66
[2017-01-01 13:33] LABS: BAND NEUTROPHILS % (MANUAL) 0 % (0-8); BASOPHILS % (MANUAL) 0 % (0-2); EOSINOPHILS % (MANUAL) 0 % (0-3); LYMPHOCYTES % (MANUAL) 43 % (20-45); NEUTROPHILS % (MANUAL) 51 % (45-75); PLATELET ESTIMATE ADEQUATE; PLATELET MORPHOLOGY NORMAL; TOTAL CELLS COUNTED 100
[2017-01-01 13:38] LABS: PATH BLOOD SMEAR/OMC SENT TO PATHOLOGIST
[2017-01-01] MEDS ORDERED: Tubing IV Secondary IV ONE ×2 (15:30→15:32)
[2017-01-01] MEDS ORDERED: NS 275ml ONE (15:32)
[2017-01-01 16:09] VITALS: BP 126/73
[2017-01-01 20:02] VITALS: BP 102/71
[2017-01-01] MEDS: Tamsulosin 0.4mg cap ORAL SCH (20:55)
[2017-01-02] VITALS (7 sets, daily range): BP systolic 100–118; BP diastolic 69–75
[2017-01-02] MEDS: NovoLOG Insulin Flexpen SUBQ SCH ×4 (06:08→20:46)
[2017-01-02 06:15] LABS: BASOPHILS % (AUTO) 1.3 % (0.0-2.0); EOSINOPHILS % (AUTO) 2.6 % (0.0-3.0); LYMPHOCYTES % (AUTO) 48.1 % (20.0-45.0); MEAN CORPUSCULAR HEMOGLOBIN 29.3 PG (27.0-31.0); MEAN CORPUSCULAR HGB CONC 32.9 G/DL (32.0-36.0); MEAN CORPUSCULAR VOLUME 89 FL (80-99); MONOCYTES % (AUTO) 5.3 % (1.0-10.0); NEUTROPHILS % (AUTO) 42.7 % (45.0-75.0); PLATELET COUNT 291 K/UL (150-450); RED BLOOD COUNT 3.81 M/UL (4.70-6.10); RED CELL DISTRIBUTION WIDTH 13.2 % (11.6-14.8); WHITE BLOOD COUNT 6.2 K/UL (4.8-10.8)
[2017-01-02 06:42] LABS: ANION GAP 14 (5-15); CALCIUM 8.8 mg/dL (8.6-10.2); CARBON DIOXIDE 25 mEQ/L (20-30); CHLORIDE 102 mEQ/L (98-107); CREATININE 0.5 mg/dL (0.7-1.2); GLOMERULAR FILTRATION RATE > 60 mL/min (>60); HEMOLYSIS 1; SODIUM 141 mEQ/L (135-145)
[2017-01-02] MEDS: Heparin 5000 units/ml inj SUBQ SCH ×2 (09:06→20:45)
[2017-01-02] MEDS: Ertapenem 1 GM in NS 55 ML IVPB SCH (11:22)
--- NOTE | 2017-01-02 15:28 | Pulmonology Progress Note ---
Assessment/Plan Assessment/Plan ASSESSMENT sepsis E coli ESBL UTI DM hypotension hx of HTN schizophrenia seizure disorder anemia PLAN OF CARE [facility] floor CXR negative urine cx + E coli ESBL abx regimen optimized as per ID ID, follows s/p IVF, no orthostatic changes continue Midodrine BP stable resume psych meds DVT prophylaxis bowel regimen seizure precautions,continue Keppra BS management with SS of insulin monitor HH stable, at baseline, no trend down psych eval noted and appreciated started on Risperdal, psych recommended supportive therapy and reality orientation dc plan to B&C , if blood cx remain [id number] change to po abx as per Id recommendations case discussed and evaluated by supervising physician Subjective Allergies: Coded Allergies: No Known Allergies (Unverified , 12/31/16) Subjective denies chest pain, SOB no seizure activity urine cx with E coli ESBL Objective Last 24 Hour Vital Signs Date Time Temp Pulse Resp B/P Pulse Ox O2 Delivery O2 Flow Rate FiO2 01/02/17 12:00 97.7 91 22 113/72 97 Room Air 01/02/17 08:59 100 24 01/02/17 08:15 95 20 Room Air 01/02/17 08:08 97.0 114 26 100/70 98 Room Air 01/02/17 04:15 97.7 95 20 109/72 97 Room Air 01/02/17 00:15 98.2 94 20 104/69 97 Room Air 01/01/17 20:44 114 20 Room Air 01/01/17 20:02 98.6 108 22 102/71 97 Room Air 01/01/17 16:09 97.6 90 21 126/73 98 Room Air 01/01/17 16:07 90 92 95 Intake and Output 01/01/17 01/02/17 19:00 07:00 Intake Total 1140 ml Output Total 1400 ml 1500 ml Balance -260 ml -1500 ml Intake Oral 1140 ml Output Urine Total 1400 ml 1500 ml # Voids 2 Objective General Appearance: no acute distress, awake, responsive, weak, Maltese speaking male HEENT: normocephalic, atraumatic Respiratory/Chest: lungs clear, no respiratory distress, no accessory muscle use Cardiovascular: normal rate, regular rhythm Abdomen: normal bowel sounds, soft, non tender Genitourinary: normal external genitalia Extremities: no edema, pedal pulses normal Neurologic/Psychiatric: abnormal gait, alert, responsive Musculoskeletal: atrophy - BLE Microbiology Date/Time Source Procedure Growth Status 12/30/16 17:50 Nasal Nares MRSA Culture - Final Staphylococcus Aureus - Mrsa Complete 12/30/16 17:50 Rectum VRE Culture - Final NO VANCOMYCIN RESISTANT ENTEROCOCCUS ... Complete Laboratory Tests 01/02/17 04:55: White Blood Count 6.2, Red Blood Count 3.81L, Hemoglobin 11.2L, Hematocrit 34.0L , Mean Corpuscular Volume 89, Mean Corpuscular Hemoglobin 29.3, Mean Corpuscular Hemoglobin Concent 32.9, Red Cell Distribution Width 13.2, Platelet Count 291, Mean Platelet Volume 7.0, Neutrophils (%) (Auto) 42.7L, Lymphocytes ( %) (Auto) 48.1H, Monocytes (%) (Auto) 5.3, Eosinophils (%) (Auto) 2.6, Basophils (%) (Auto) 1.3, Sodium Level 141, Potassium Level 4.0, Chloride Level 102, Carbon Dioxide Level 25, Anion Gap 14, Blood Urea Nitrogen 17, Creatinine 0.5L, Estimat Glomerular Filtration Rate > 60, Glucose Level 202H, Calcium Level 8.8 Current Medications Medications (Trade) Dose Ordered Sig/Royal Route PRN Reason Start Time Stop Time Status Last Admin Dose Admin Acetaminophen (Tylenol) 650 mg Q4H PRN ORAL T>100.5 12/31/16 16:00 01/30/17 15:59 12/31/16 17:26 Albuterol/ Ipratropium (DuoNeb 0.5-3(2.5)mg/3ml) 3 ml Q4H PRN HHN Shortness of Breath 12/31/16 16:00 01/05/17 15:59 Dextrose (Dextrose 50%) STAT PRN IV Hypoglycemia 12/31/16 16:00 01/30/17 15:59 Ertapenem/Sodium Chloride (INVanz/Sodium Chloride) 55 ml @ 110 mls/hr Q24H IVPB 01/01/17 10:00 01/06/17 09:59 01/02/17 11:22 Finasteride (Proscar) 5 mg DAILY ORAL 01/01/17 09:00 01/31/17 08:59 01/02/17 09:06 Heparin Sodium (Porcine) (Heparin 5000 units/ml) 5,000 units EVERY 12 HOURS SUBQ 12/31/16 21:00 01/30/17 20:59 01/02/17 09:06 Insulin Aspart (NovoLOG) BEFORE MEALS AND HS SUBQ 12/31/16 16:30 01/30/17 16:29 01/02/17 12:06 Levetiracetam (Keppra) 750 mg Q12HR ORAL 12/31/16 21:00 01/30/17 20:59 01/02/17 09:06 Midodrine (Pro-Amatine) 5 mg THREE TIMES A DAY ORAL 12/31/16 18:00 01/30/17 17:59 01/02/17 13:20 Morphine Sulfate (Morphine Sulfate) 2 mg Q4H PRN IVP PAIN 4-10 12/31/16 16:00 01/07/17 15:59 Nitroglycerin (Ntg) 0.4 mg Q5MIN X 3 DOSES PRN SL Prn Chest Pain 12/31/16 16:00 01/30/17 15:59 Ondansetron HCl (Zofran) 4 mg Q6H PRN IVP Nausea & Vomiting 12/31/16 16:00 01/30/17 15:59 Polyethylene Glycol (Miralax) 17 gm DAILYPRN PRN ORAL Constipation 12/31/16 16:00 01/30/17 15:59 Risperidone 2 mg 2 mg BEDTIME ORAL 12/31/16 21:00 01/30/17 20:59 01/01/17 20:55 Tamsulosin HCl (Flomax) 0.4 mg BEDTIME ORAL 12/31/16 21:00 01/30/17 20:59 01/01/17 20:55 Temazepam (Restoril) 15 mg HSPRN PRN ORAL Insomnia 12/31/16 21:00 01/07/17 20:59 Pepe (Av)Kaylynn NP January 02, 2017 15:28
[2017-01-02] MEDS: Tamsulosin 0.4mg cap ORAL SCH (20:45)
[2017-01-03 04:00] VITALS: BP 106/61
[2017-01-03] MEDS: NovoLOG Insulin Flexpen SUBQ SCH ×2 (05:30→11:56)
[2017-01-03 08:00] VITALS: BP 101/60
[2017-01-03] MEDS: Heparin 5000 units/ml inj SUBQ SCH (08:36)
[2017-01-03] MEDS: Ertapenem 1 GM in NS 55 ML IVPB SCH (09:58)
[2017-01-03] MEDS ORDERED: RISPERDAL2 MG ORAL (11:09)
[2017-01-03] MEDS ORDERED: NITROFURANTOIN100 M2 ORAL ×2 (11:09→12:20)
--- NOTE | 2017-01-03 11:11 | Pulmonology Progress Note ---
Assessment/Plan Assessment/Plan ASSESSMENT sepsis E coli ESBL UTI DM hypotension hx of HTN schizophrenia seizure disorder anemia PLAN OF CARE [facility] floor CXR negative urine cx + E coli ESBL abx regimen optimized as per ID ID, follows s/p IVF, no orthostatic changes continue Midodrine BP stable resume psych meds DVT prophylaxis bowel regimen seizure precautions,continue Keppra BS management with SS of insulin monitor HH stable, at baseline, no trend down psych eval noted and appreciated started on Risperdal, psych recommended supportive therapy and reality orientation dc today to B&C , blood cx preliminary negative x 72 hrs change to po Microbid to complete course as per ID recommendations case discussed and evaluated by supervising physician Subjective Allergies: Coded Allergies: No Known Allergies (Unverified , 12/31/16) Subjective denies chest pain, SOB no seizure activity urine cx with E coli ESBL Objective Last 24 Hour Vital Signs Date Time Temp Pulse Resp B/P Pulse Ox O2 Delivery O2 Flow Rate FiO2 01/03/17 08:00 97.5 105 18 101/60 98 Room Air 01/03/17 07:58 119 20 Room Air 01/03/17 04:00 97.7 97 20 106/61 93 Room Air 01/02/17 23:47 98.1 88 20 109/75 97 Room Air 01/02/17 20:14 98.1 88 22 118/74 97 Room Air 01/02/17 19:08 98 20 Room Air 01/02/17 16:00 98.4 92 21 105/73 97 Room Air 01/02/17 12:00 97.7 91 22 113/72 97 Room Air Intake and Output 01/02/17 01/03/17 19:00 07:00 Output Total 700 ml 675 ml Balance -700 ml -675 ml Output Urine Total 700 ml 675 ml Objective General Appearance: no acute distress, awake, responsive, weak, Latvian speaking male HEENT: normocephalic, atraumatic Respiratory/Chest: lungs clear, no respiratory distress, no accessory muscle use Cardiovascular: normal rate, regular rhythm Abdomen: normal bowel sounds, soft, non tender Genitourinary: normal external genitalia Extremities: no edema, pedal pulses normal Neurologic/Psychiatric: abnormal gait, alert, responsive Musculoskeletal: atrophy - BLE Current Medications Medications (Trade) Dose Ordered Sig/Royal Route PRN Reason Start Time Stop Time Status Last Admin Dose Admin Acetaminophen (Tylenol) 650 mg Q4H PRN ORAL T>100.5 12/31/16 16:00 01/30/17 15:59 01/03/17 08:38 Albuterol/ Ipratropium (DuoNeb 0.5-3(2.5)mg/3ml) 3 ml Q4H PRN HHN Shortness of Breath 12/31/16 16:00 01/05/17 15:59 Dextrose (Dextrose 50%) STAT PRN IV Hypoglycemia 12/31/16 16:00 01/30/17 15:59 Ertapenem/Sodium Chloride (INVanz/Sodium Chloride) 55 ml @ 110 mls/hr Q24H IVPB 01/01/17 10:00 01/06/17 09:59 01/03/17 09:58 Finasteride (Proscar) 5 mg DAILY ORAL 01/01/17 09:00 01/31/17 08:59 01/03/17 08:31 Heparin Sodium (Porcine) (Heparin 5000 units/ml) 5,000 units EVERY 12 HOURS SUBQ 12/31/16 21:00 01/30/17 20:59 01/03/17 08:36 Insulin Aspart (NovoLOG) BEFORE MEALS AND HS SUBQ 12/31/16 16:30 01/30/17 16:29 01/03/17 05:30 Levetiracetam (Keppra) 750 mg Q12HR ORAL 12/31/16 21:00 01/30/17 20:59 01/03/17 08:31 Midodrine (Pro-Amatine) 5 mg THREE TIMES A DAY ORAL 12/31/16 18:00 01/30/17 17:59 01/03/17 08:30 Morphine Sulfate (Morphine Sulfate) 2 mg Q4H PRN IVP PAIN 4-10 12/31/16 16:00 01/07/17 15:59 01/03/17 09:59 Nitroglycerin (Ntg) 0.4 mg Q5MIN X 3 DOSES PRN SL Prn Chest Pain 12/31/16 16:00 01/30/17 15:59 Ondansetron HCl (Zofran) 4 mg Q6H PRN IVP Nausea & Vomiting 12/31/16 16:00 01/30/17 15:59 Polyethylene Glycol (Miralax) 17 gm DAILYPRN PRN ORAL Constipation 12/31/16 16:00 01/30/17 15:59 Risperidone 2 mg 2 mg BEDTIME ORAL 12/31/16 21:00 01/30/17 20:59 01/02/17 20:45 Tamsulosin HCl (Flomax) 0.4 mg BEDTIME ORAL 12/31/16 21:00 01/30/17 20:59 01/02/17 20:45 Temazepam (Restoril) 15 mg HSPRN PRN ORAL Insomnia 12/31/16 21:00 01/07/17 20:59 [facility]Kaylynn NP January 03, 2017 11:11
--- NOTE | 2017-01-03 11:22 | Infectious Diseases Prog Note ---
Assessment/Plan Assessment/Plan A; UTI with E. coli ESBL Sepsis DM MRSA colonization P: continue Invaz in hospital in case of discharge PO Nitrofurantoin X 3 days Subjective ROS Limited/Unobtainable: Yes Gastrointestinal/Abdominal: Reports: other - upper abdominal pain Allergies: Coded Allergies: No Known Allergies (Unverified , 12/31/16) Objective Vital Signs Last 24 Hour Vital Signs Date Time Temp Pulse Resp B/P Pulse Ox O2 Delivery O2 Flow Rate FiO2 01/03/17 08:00 97.5 105 18 101/60 98 Room Air 01/03/17 07:58 119 20 Room Air 01/03/17 04:00 97.7 97 20 106/61 93 Room Air 01/02/17 23:47 98.1 88 20 109/75 97 Room Air 01/02/17 20:14 98.1 88 22 118/74 97 Room Air 01/02/17 19:08 98 20 Room Air 01/02/17 16:00 98.4 92 21 105/73 97 Room Air 01/02/17 12:00 97.7 91 22 113/72 97 Room Air Height (Feet): 5 Height (Inches): 4.00 Weight (Pounds): 129 General Appearance: no acute distress HEENT: mucous membranes moist Respiratory/Chest: lungs clear Cardiovascular: tachycardia Abdomen: soft, non tender Extremities: no edema Neurologic/Psychiatric: other - sleeping Current Medications Medications (Trade) Dose Ordered Sig/Royal Route PRN Reason Start Time Stop Time Status Last Admin Dose Admin Acetaminophen (Tylenol) 650 mg Q4H PRN ORAL T>100.5 12/31/16 16:00 01/30/17 15:59 01/03/17 08:38 Albuterol/ Ipratropium (DuoNeb 0.5-3(2.5)mg/3ml) 3 ml Q4H PRN HHN Shortness of Breath 12/31/16 16:00 01/05/17 15:59 Dextrose (Dextrose 50%) STAT PRN IV Hypoglycemia 12/31/16 16:00 01/30/17 15:59 Ertapenem/Sodium Chloride (INVanz/Sodium Chloride) 55 ml @ 110 mls/hr Q24H IVPB 01/01/17 10:00 01/06/17 09:59 01/03/17 09:58 Finasteride (Proscar) 5 mg DAILY ORAL 01/01/17 09:00 01/31/17 08:59 01/03/17 08:31 Heparin Sodium (Porcine) (Heparin 5000 units/ml) 5,000 units EVERY 12 HOURS SUBQ 12/31/16 21:00 01/30/17 20:59 01/03/17 08:36 Insulin Aspart (NovoLOG) BEFORE MEALS AND HS SUBQ 12/31/16 16:30 01/30/17 16:29 01/03/17 05:30 Levetiracetam (Keppra) 750 mg Q12HR ORAL 12/31/16 21:00 01/30/17 20:59 01/03/17 08:31 Midodrine (Pro-Amatine) 5 mg THREE TIMES A DAY ORAL 12/31/16 18:00 01/30/17 17:59 01/03/17 08:30 Morphine Sulfate (Morphine Sulfate) 2 mg Q4H PRN IVP PAIN 4-10 12/31/16 16:00 01/07/17 15:59 01/03/17 09:59 Nitroglycerin (Ntg) 0.4 mg Q5MIN X 3 DOSES PRN SL Prn Chest Pain 12/31/16 16:00 01/30/17 15:59 Ondansetron HCl (Zofran) 4 mg Q6H PRN IVP Nausea & Vomiting 12/31/16 16:00 01/30/17 15:59 Polyethylene Glycol (Miralax) 17 gm DAILYPRN PRN ORAL Constipation 12/31/16 16:00 01/30/17 15:59 Risperidone 2 mg 2 mg BEDTIME ORAL 12/31/16 21:00 01/30/17 20:59 01/02/17 20:45 Tamsulosin HCl (Flomax) 0.4 mg BEDTIME ORAL 12/31/16 21:00 01/30/17 20:59 01/02/17 20:45 Temazepam (Restoril) 15 mg HSPRN PRN ORAL Insomnia 12/31/16 21:00 01/07/17 20:59 MARISELA HYDE January 03, 2017 11:22
[2017-01-03 12:00] VITALS: BP 103/67
--- NOTE | 2017-01-04 19:14 | Cardiology Report ---
APPROVED REPORT EKG Measurement Heart [id number] Normal sinus rhythm Normal ECG
--- NOTE | 2017-01-05 06:16 | Discharge Summary 2 SIG ---
DATE OF ADMISSION: 12/30/2016 DATE OF DISCHARGE: 01/03/2017 REASON FOR ADMISSION: 56-year-old male presented for evaluation of hypotension. Apparently upon checking in the [facility], where he resides, it was found that the patient had a normal blood pressure supine, but standing blood pressure dropped to systolic - 77. The patient denied dizziness, fever, chest pain, shortness of breath, palpitations, nausea, vomiting, or diarrhea. No dysuria , no lower abdominal or flank pain. The patient with history of seizure and diabetes. Workup in the emergency room revealed no leukocytosis, stable vital signs, mild anemia. Lactic acid elevated-2.5. UA with evidence of UTI. Electrolytes essentially stable. Renal parameters stable. Pro-BNP 96. Troponin negative. EKG showed normal sinus rhythm, no acute changes.Chest x-ray revealed no acute cardiopulmonary disease. The patient admitted for further management. ADMITTING DIAGNOSES: 1. Sepsis. 2. Urinary tract infection. 3. Psychiatric disorder. 4. Diabetes. 5. Hypotension HOSPITAL COURSE: The patient admitted. The patient started on IV fluids and IV antibiotics. ID consult was requested. Blood culture negative for 72 hours. Urine culture revealed E. coli ESBL. ID changed antibiotic to IV Invanz and recommended to continue IV antibiotics while in the hospital and change to oral antibiotics when discharge. The patient needs seven more days to complete a total course of ten days of antibiotics. Chest x-ray was negative. Status post IV fluids. Orthostatic vital signs were checked, no evidence of orthostatic changes. Continue midodrine. Blood pressure was stable. Orthostatic changes noted in the facility, possibly due to dehydration , since no evidence of orthostatic changes after IV hydration, Psychiatric medications were resumed. DVT prophylaxis provided. Bowel regimen instituted. Seizure precaution maintained. No seizure activities while in the hospital. Keppra was continued. Blood sugar was managed with sliding scale of insulin, stable. Hemoglobin and hematocrit were monitored, at baseline, no trend down. Psychiatrist seen and evaluated the patient. The patient was started on Risperdal. Psychiatrist recommended supportive care and reality orientation. The patient was stable for discharge to [facility]. FINAL DIAGNOSES: sepsis E coli ESBL UTI orthostatic hypotension diabetes schizophrenia seizure disorder anemia DISCHARGE MEDICATIONS: See medication reconciliation list. Antibiotics were changed to Macrobid orally for additional seven days as recommended by ID doctor. DISCHARGE INSTRUCTIONS: The patient discharged to [facility]. Follow up with primary medical doctor. Heaven Gaona M.D. I have been assigned to dictate discharge summary on this account and I was not involved in the patient's management. Kaylynn StricklandHarlem Hospital CenterFatimah N.PClare DR: Bebo JOB#: [id number] CC: MESHA
== END 2017-01-03 13:25 | disposition home or self-care (01) | DRG 720 ==
LOC: EDBD 13:51 → EMR 14:42 → 2E 15:16 → EDBEDREQ 15:21 → 4W 12-31 15:51
DX: A41.9 Sepsis, unspecified organism (principal); N39.0 Urinary tract infection, site not specified; E11.9 Type 2 diabetes mellitus without complications; B96.20 Unspecified Escherichia coli [E. coli] as the cause of diseases classified elsewhere; D64.9 Anemia, unspecified; I95.1 Orthostatic hypotension; G40.909 Epilepsy, unspecified, not intractable, without status epilepticus; Z16.12 Extended spectrum beta lactamase (ESBL) resistance; F20.9 Schizophrenia, unspecified; Z22.322 Carrier or suspected carrier of Methicillin resistant Staphylococcus aureus
CPT/HCPCS: 36415; 71010; 80048; 80053; 80299; 81003; 82378; 82550; 82607; 82746; 82962; 83540; 83550; 83605; 83615; 83735; 83880; 84484; 85007; 85025; 85044; 85060; 85610; 85651; 85730; 87040; 87081; 87086; 87181; 93005; 94664; J1815

== ENCOUNTER 2017-06-17 09:03 | Emergency (ER) | payer OTHER ==
[~2017-06-17] VITALS: Ht 172.7 cm; Wt 72.6 kg
[~2017-06-17 09:03] MED LIST changes: +ACETAMINOP160 MG/54 ORAL; +FOLIC ACID1 MG ORAL; +GLIMEPIRIDE1 MG ORAL; +LEVETIRACETAM500 MG ORAL; +MEGESTROL ACETA40 MG PO; +METFORMIN HCL1000 M1 ORAL; +MIDODRINE HCL5 MG ORAL; +NITROFURANTOIN100 M2 ORAL; -NS 1000ml 1,600 ML IVLG ONE; +PROSCAR5 MG ORAL; +RISPERDAL2 MG ORAL; +TAMSULOSIN HCL0.4 MG ORAL
[2017-06-17] MEDS ORDERED: Sodium Chloride 500ML 500 ML IV ONE (09:25)
[2017-06-17] MEDS ORDERED: THIAMINE HCL100 MG ORAL (09:36)
[2017-06-17] MEDS ORDERED: MEGESTROL ACETA40 MG PO (09:36)
[2017-06-17 10:25] LABS: EOSINOPHILS % (AUTO) 6.3 % (0.0-3.0); LYMPHOCYTES % (AUTO) 36.2 % (20.0-45.0); MEAN CORPUSCULAR HEMOGLOBIN 29.8 PG (27.0-31.0); MEAN CORPUSCULAR HGB CONC 33.3 G/DL (32.0-36.0); MEAN CORPUSCULAR VOLUME 89 FL (80-99); MEAN PLATELET VOLUME 6.9 FL (6.5-10.1); MONOCYTES % (AUTO) 5.3 % (1.0-10.0); NEUTROPHILS % (AUTO) 51.3 % (45.0-75.0); PLATELET COUNT 303 K/UL (150-450); RED BLOOD COUNT 4.23 M/UL (4.70-6.10); RED CELL DISTRIBUTION WIDTH 12.6 % (11.6-14.8); WHITE BLOOD COUNT 6.4 K/UL (4.8-10.8)
[2017-06-17 10:38] LABS: ALANINE AMINOTRANSFERASE 14 U/L (12-78); ALBUMIN/GLOBULIN RATIO 0.9 (1.0-2.7); ANION GAP 6 mmol/L (5-15); ASPARTATE AMINO TRANSFERASE 15 U/L (15-37); CARBON DIOXIDE 27 MMOL/L (21-32); CHLORIDE 106 MMOL/L (98-107); CREATININE 0.8 MG/DL (0.55-1.30); GLOMERULAR FILTRATION RATE > 60 mL/min (>60); LIPASE 719 U/L (73-393); POTASSIUM 4.3 MMOL/L (3.5-5.1); SODIUM 139 MMOL/L (136-145); TOTAL PROTEIN 6.6 G/DL (6.4-8.2)
--- NOTE | 2017-06-17 11:39 | Diagnostic Imaging Report ---
Clinical Indication: Abdominal pain, inguinal hernia 3-4 weeks, itching, pain Technique: No oral contrast utilized, per emergency room physician request IV administration nonionic contrast. Venous phase spiral acquisition obtained through the abdomen and pelvis. Multiplanar reconstructions were generated. Total dose length product 661 mGycm. CTDIvol(s) 10 mGy. Dose reduction achieved using automated exposure control Comparison: None Findings: The appendix is normal. There is a large direct left inguinal hernia that contains only fat, no bowel. Fat within the hernia measures 6.3 x 6.3 11.4 cm. No increased attenuation to suggest strangulation. No evidence of diverticulosis or diverticulitis. No small bowel distention. No free or loculated intraperitoneal air or fluid is evident. The liver demonstrates multiple cysts as well as multiple subcentimeter low-attenuation lesions which are too small to characterize. Gallbladder, bile ducts, pancreas, are unremarkable. The right adrenal demonstrates a 14 mm nodule that demonstrates nonspecific attenuation. Left adrenal demonstrates a 9 mm nodule.. The left kidney demonstrates a tiny subcentimeter low-attenuation lesion which is too small to characterize. Right kidney is unremarkable. No pelvic mass or adenopathy. Bladder is unremarkable. The included lung bases are clear except for minimal atelectasis or scarring in the right middle lobe. The bones demonstrate mild degenerative spondylosis changes, are otherwise unremarkable. Impression: Large direct left inguinal inguinal hernia, contains only fat. No evidence of strangulation. 14 mm right adrenal nodule, 9 mm left adrenal nodule. Recommend comparison with prior exams may be available. If there no prior exams available for comparison recommend [address] Multiple is hepatic cysts as well as multiple subcentimeter low-attenuation hepatic lesions which are too small to characterize. Subcentimeter left renal lesion. Most likely benign cysts. No further followup for these necessary Other findings as noted, including minimal right middle lobe atelectasis or scarring, mild degenerative spondylosis The CT scanner at [facility] is accredited by the [employer] and the scans are performed using protocols designed to limit radiation exposure to as low as reasonably achievable to attain images of sufficient resolution adequate for diagnostic evaluation.
[2017-06-17] MEDS ORDERED: TRAMADOL HCL50 MG ORAL (12:17)
[2017-06-17 12:54] VITALS: BP 101/96
[2017-06-17 12:59] VITALS: BP 101/96
--- NOTE | 2017-06-17 15:07 | Emergency Room Report ---
History of Present Illness General Chief Complaint: Pain Source: Patient Present Illness HPI 57-year-old male presents ED for evaluation. personal service workers at bedside states that patient is here for scrotal swelling for the last month. Patient also complaining of pain. 01/23, sharp, nonradiating. Patient resides in a board-and -care facility. Patient denies any fevers or chills. Denies chest pain shortness of breath. Denies nausea or vomiting. No other aggravating relieving factors. Denies any other associated symptoms Allergies: Coded Allergies: No Known Allergies (Unverified , 12/31/16) Patient History Past Medical History: DM, HTN, seizures Past Surgical History: none Pertinent Family History: none Social History: Denies: smoking, alcohol use, drug use Immunizations: UTD Reviewed Nursing Documentation: PMH: Agreed, PSxH: Agreed Nursing Documentation-PMH Past Medical History: No History, Except For Hx Hypertension: Yes Hx Diabetes: Yes Hx Neurological Problems: Yes - Seizure Hx Seizures: Yes Review of Systems All Other Systems: negative except mentioned in HPI Physical Exam Vital Signs Date Time Temp Pulse Resp B/P (MAP) Pulse Ox O2 Delivery O2 Flow Rate FiO2 06/17/17 09:10 98.1 93 16 94/63 99 Room Air Sp02 EP Interpretation: reviewed, normal General Appearance: no apparent distress, alert, GCS 15, non-toxic Head: normocephalic, atraumatic Eyes: bilateral eye normal inspection, bilateral eye PERRL ENT: hearing grossly normal, normal pharynx, no angioedema, normal voice Neck: full range of motion, supple/symm/no masses Respiratory: chest non-tender, lungs clear, normal breath sounds, speaking full sentences Cardiovascular #1: regular rate, rhythm, no edema Cardiovascular #2: 2+ carotid (R), 2+ carotid (L), 2+ radial (R), 2+ radial (L) , 2+ dorsalis pedis (R), 2+ dorsalis pedis (L) Gastrointestinal: normal bowel sounds, non tender, soft, non-distended, no guarding, no rebound Rectal: deferred Genitourinary: normal inspection, no CVA tenderness, other - scrotal swelling Musculoskeletal: back normal, gait/station normal, normal range of motion, non- tender Neurologic: alert, oriented x3, responsive, motor strength/tone normal, sensory intact, speech normal Psychiatric: judgement/insight normal, memory normal, mood/affect normal, no suicidal/homicidal ideation Reflexes: 3+ bicep (R), 3+ bicep (L), 3+ tricep (R), 3+ tricep (L), 3+ knee (R) , 3+ knee (L) Skin: normal color, no rash, warm/dry, well hydrated Lymphatic: no adenopathy Medical Decision Making Diagnostic Impression: Primary Impression: Inguinal hernia Qualified Codes: K40.90 - Unilateral inguinal hernia, without obstruction or gangrene, not specified as recurrent ER Course Hospital Course 57-year-old M presents to ED with abdominal pain, scrotal swelling Differential diagnosis includes-appendicitis, cholecystitis, small bowel obstruction, gastritis, Clinical course Patient placed on stretcher. After initial history and physical I ordered labs , IV fluids, CT scan Labs - no leukocytosis, electrolytes ok, LFTs normal, UA unremarkable CT scan shows inguinal hernia with fat, no obstruction I discussed findings with the patient. No emergent indication for surgery at this time. Patient to followup with surgery as outpatient for definitive repair I feel this is a highly complex case requiring extensive working including EKG/ Rhythm strip, Xray/CT/US, Blood/urine lab work, repeat exams while in ED, and administration of strong opiates/narcotics for pain control, admission to hospital or close patient follow up. Diagnosis - inguinal hernia Stable and discharged to SNF. Followup with PMD/surgery. Return to ED if symptoms recur or worsen Labs Test 06/17/17 09:55 White Blood Count 6.4 K/UL (4.8-10.8) Red Blood Count 4.23 M/UL (4.70-6.10) Hemoglobin 12.6 G/DL (14.2-18.0) Hematocrit 37.8 % (42.0-52.0) Mean Corpuscular Volume 89 FL (80-99) Mean Corpuscular Hemoglobin 29.8 PG (27.0-31.0) Mean Corpuscular Hemoglobin Concent 33.3 G/DL (32.0-36.0) Red Cell Distribution Width 12.6 % (11.6-14.8) Platelet Count 303 K/UL (150-450) Mean Platelet Volume 6.9 FL (6.5-10.1) Neutrophils (%) (Auto) 51.3 % (45.0-75.0) Lymphocytes (%) (Auto) 36.2 % (20.0-45.0) Monocytes (%) (Auto) 5.3 % (1.0-10.0) Eosinophils (%) (Auto) 6.3 % (0.0-3.0) Basophils (%) (Auto) 1.0 % (0.0-2.0) Sodium Level 139 MMOL/L (136-145) Potassium Level 4.3 MMOL/L (3.5-5.1) Chloride Level 106 MMOL/L (98-107) Carbon Dioxide Level 27 MMOL/L (21-32) Anion Gap 6 mmol/L (5-15) Blood Urea Nitrogen 12 mg/dL (7-18) Creatinine 0.8 MG/DL (0.55-1.30) Estimat Glomerular Filtration Rate > 60 mL/min (>60) Glucose Level 184 MG/DL (74-106) Calcium Level 9.0 MG/DL (8.5-10.1) Total Bilirubin 0.2 MG/DL (0.2-1.0) Aspartate Amino Transf (AST/SGOT) 15 U/L (15-37) Alanine Aminotransferase (ALT/SGPT) 14 U/L (12-78) Alkaline Phosphatase 51 U/L (46-116) Total Protein 6.6 G/DL (6.4-8.2) Albumin 3.2 G/DL (3.4-5.0) Globulin 3.4 g/dL Albumin/Globulin Ratio 0.9 (1.0-2.7) Lipase 719 U/L (73-393) CT/MRI/US Diagnostic Results CT/MRI/US Diagnostic Results : Imaging Test Ordered: CT A/P Impression inguinal hernia, with fat, no obstruction Last Vital Signs Date Time Temp Pulse Resp B/P (MAP) Pulse Ox O2 Delivery O2 Flow Rate FiO2 06/17/17 12:59 90 17 101/96 98 Room Air 06/17/17 09:10 98.1 Status: improved Disposition: XFER SNF Condition: Stable Scripts Tramadol Hcl* (ULTRAM*) 50 Mg Tablet 50 MG ORAL Q6H Y for For Pain, #30 TAB 0 Refills Prov: JENNIFER WU M.D. 06/17/17 Referrals: Jared Choudhury Patient Instructions: Inguinal Hernia, Adult, [id number] JENNIFER WU M.D. Jun 17, 2017 15:07
== END 2017-06-17 13:00 | disposition home or self-care (01) ==
LOC: EMR 09:44
DX: K40.90 Unilateral inguinal hernia, without obstruction or gangrene, not specified as recurrent (principal); I10 Essential (primary) hypertension; E11.9 Type 2 diabetes mellitus without complications
CPT/HCPCS: 36415; 74177; 80053; 83690; 85025; 96360; 99284; Q9967

== ENCOUNTER 2017-09-21 16:40 | Emergency (ER) | payer OTHER ==
[~2017-09-21] VITALS: Ht 165.1 cm; Wt 59.0 kg
[~2017-09-21 16:40] MED LIST changes: +THIAMINE HCL100 MG ORAL; +TRAMADOL HCL50 MG ORAL
[2017-09-21 20:00] VITALS: BP 121/62
[2017-09-22 00:13] VITALS: BP 131/71
--- NOTE | 2017-09-23 10:15 | Emergency Room Report ---
History of Present Illness General Chief Complaint: Alcohol Intoxication Source: Patient Present Illness HPI Patient was brought in by paramedics for alcohol intoxication Patient upon arrival does admit to drinking alcohol Her procedure his alcohol regularly Denies any headache denies any chest pain or shortness of breath Patient reports that he was tired Patient appeared to be unsteady on his gait Denies any trauma denies any focal weakness Allergies: Coded Allergies: No Known Allergies (Unverified , 12/31/16) Patient History Past Medical History: see triage record Pertinent Family History: none Reviewed Nursing Documentation: PMH: Agreed, PSxH: Agreed Nursing Documentation-PMH Hx Hypertension: Yes Hx Diabetes: Yes Hx Neurological Problems: Yes - Seizure Hx Seizures: Yes Review of Systems All Other Systems: negative except mentioned in HPI Physical Exam Vital Signs Date Time Temp Pulse Resp B/P (MAP) Pulse Ox O2 Delivery O2 Flow Rate FiO2 09/21/17 16:37 98.8 88 18 100/60 98 Room Air Sp02 EP Interpretation: reviewed, normal General Appearance: well appearing - Patient appeared to be slurring his speech , but awake, no apparent distress Head: normocephalic, atraumatic Eyes: bilateral eye PERRL, bilateral eye EOMI ENT: hearing grossly normal, normal pharynx, TMs + canals normal, uvula midline Neck: full range of motion, supple, no meningismus, no bony tend Respiratory: lungs clear, normal breath sounds, no rhonchi, no respiratory distress, no retraction, no accessory muscle use Cardiovascular #1: normal peripheral pulses, regular rate, rhythm, no edema, no gallop, no JVD, no murmur Gastrointestinal: normal bowel sounds, non tender, soft, no mass, no organomegaly, non-distended, no guarding, no hernia, no pulsatile mass, no rebound Genitourinary: no CVA tenderness Musculoskeletal: normal inspection Neurologic: oriented x3, responsive, carton counter feeder III-XII nml as tested, motor strength/ tone normal, sensory intact Psychiatric: mood/affect normal Skin: normal color, no rash, warm/dry, palpation normal Lymphatic: normal inspection, no adenopathy Medical Decision Making Diagnostic Impression: Primary Impression: Alcohol abuse ER Course Patient had a fairly benign medical evaluation does appear to show signs and findings of likely alcohol ingestion Patient requesting to sleep At this time no focal findings were noted in patient did admit to drinking heavy amounts of alcohol After further observation patient has ambulated from his room reports that he wants to go back home Patient appears to have paperwork from a boarding care facility That facility was contacted and transportation is set up for the patient to be transported I did not feel comfortable with the patient ambulating or taking the bus the facility Last Vital Signs Date Time Temp Pulse Resp B/P (MAP) Pulse Ox O2 Delivery O2 Flow Rate FiO2 09/22/17 00:13 85 14 131/71 98 Room Air 09/21/17 20:00 98.8 Disposition: HOME, SELF-CARE Condition: Stable Referrals: [facility]ERR[facility] (PCP) Additional Instructions: Patient is provided with the discharge instructions notified to follow up with primary doctor in the next 2-3 days otherwise return to the er with any worsening symptoms. Please note that this report is being documented using [employer] technology. This can lead to erroneous entry secondary to incorrect interpretation by the dictating instrument. SANTI SEWELL D.O. Sep 23, 2017 10:15
== END 2017-09-22 00:30 | disposition home or self-care (01) ==
LOC: EDBD 16:40 → EMR 17:18
DX: F10.10 Alcohol abuse, uncomplicated (principal); I10 Essential (primary) hypertension; E11.9 Type 2 diabetes mellitus without complications; Z86.69 Personal history of other diseases of the nervous system and sense organs
CPT/HCPCS: 99283